=== PATIENT | male | born 1990 | race Caucasian/White ===

== ENCOUNTER 2017-06-19 12:50 | Emergency (ER) | payer OTHER ==
[~2017-06-19] VITALS: Ht 172.7 cm; Wt 77.1 kg
[~2017-06-19 12:50] MED LIST: DURICEF500 MG PO; MOTRIN800 MG PO; NAPROSYN500 MG PO; VISTARIL25 M2 PO; ZITHROMAX250 MG PO
== END 2017-06-19 14:59 | disposition home or self-care (01) ==
LOC: ED 12:50
DX: M25.521 Pain in right elbow (principal); F17.200 Nicotine dependence, unspecified, uncomplicated; Z88.7 Allergy status to serum and vaccine; Z91.012 Allergy to eggs

== ENCOUNTER 2021-10-09 01:19 | Emergency (ER) | payer SELFPAY ==
[~2021-10-09] VITALS: Ht 172.7 cm; Wt 86.2 kg
== END 2021-10-09 02:32 | disposition home or self-care (01) ==
LOC: ED 01:19
DX: S62.306A Unspecified fracture of fifth metacarpal bone, right hand, initial encounter for closed fracture (principal); S61.213A Laceration without foreign body of left middle finger without damage to nail, initial encounter; Z88.7 Allergy status to serum and vaccine; Z91.010 Allergy to peanuts; X58.XXXA Exposure to other specified factors, initial encounter; Y93.89 Activity, other specified; Y92.89 Other specified places as the place of occurrence of the external cause; Y99.8 Other external cause status

== ENCOUNTER 2025-04-01 14:44 | Emergency (ER) | payer SELFPAY ==
[~2025-04-01] VITALS: Ht 172.7 cm; Wt 81.6 kg
[2025-04-01] MEDS ORDERED: CEPHALEXIN500 M1 PO (15:47)
[2025-04-01] MEDS ORDERED: Bacitracin Zinc 14 GM TUBE T ONE (15:50)
[2025-04-01] MEDS ORDERED: CEPHALEXIN 500 MG CAP PO ONE (15:50)
== END 2025-04-01 15:57 | disposition home or self-care (01) ==
LOC: ED 14:44
DX: S61.202A Unspecified open wound of right middle finger without damage to nail, initial encounter (principal); S61.001A Unspecified open wound of right thumb without damage to nail, initial encounter; Z91.012 Allergy to eggs; Z88.7 Allergy status to serum and vaccine; W27.8XXA Contact with other nonpowered hand tool, initial encounter; Y93.89 Activity, other specified; Y92.89 Other specified places as the place of occurrence of the external cause; Y99.8 Other external cause status